=== PATIENT | female | born 1945 | race Caucasian/White ===

== ENCOUNTER → 2016-08-28 | Outpatient (CLI) | payer OTHER | LOC: BRMIMAGING 08:32 | PROVIDERS: ATTEND Physician Assistant Medical | DX: R11.2 Nausea with vomiting, unspecified (principal); R19.7 Diarrhea, unspecified | CPT/HCPCS: 76700-PO ==

== ENCOUNTER → 2017-07-31 | Outpatient (CLI) | payer OTHER | LOC: FIMAGING 15:50 | PROVIDERS: ATTEND Family Medicine | DX: M51.36 Other intervertebral disc degeneration, lumbar region (principal); M51.34 Other intervertebral disc degeneration, thoracic region; M51.35 Other intervertebral disc degeneration, thoracolumbar region; M51.37 Other intervertebral disc degeneration, lumbosacral region; M51.26 Other intervertebral disc displacement, lumbar region; M51.24 Other intervertebral disc displacement, thoracic region; M48.061 Spinal stenosis, lumbar region without neurogenic claudication; M48.07 Spinal stenosis, lumbosacral region; M41.9 Scoliosis, unspecified ==

== ENCOUNTER 2017-08-19 13:16 | Day surgery (SDC) | payer OTHER ==
[2017-08-19] MEDS ORDERED: FLUMAZENIL 0.5 MG/5 ML MDV IVP PRN (13:18)
[2017-08-19] MEDS ORDERED: NALOXONE HCL 0.4 MG/ML INJ IVP PRN (13:18)
[2017-08-19] MEDS ORDERED: MEPERIDINE 25 MG/ML SYR IVP PRN (13:18)
[2017-08-19] MEDS ORDERED: MIDAZOLAM 2 MG/2 ML VIAL IVP PRN (13:18)
[2017-08-19] MEDS ORDERED: fentaNYL 100 MCG/2 ML INJ IVP PRN (13:18)
[2017-08-19] MEDS ORDERED: fentaNYL 100 MCG/2 ML INJ ONE (13:21)
[2017-08-19] MEDS ORDERED: FLUMAZENIL 0.5 MG/5 ML MDV IVP ONE (13:21)
[2017-08-19] MEDS ORDERED: MIDAZOLAM 2 MG/2 ML VIAL ONE (13:21)
[2017-08-19] MEDS ORDERED: NALOXONE HCL 0.4 MG/ML INJ ONE (13:21)
[2017-08-19] MEDS ORDERED: NS 1,000 ML IV SCH (13:30)
[2017-08-19 13:56] VITALS: PULSE 60; RESP 12
[2017-08-19] MEDS ORDERED: TRIAMCINOLONE ACETONIDE 40 MG/ML VIAL ONE (14:00)
[2017-08-19] MEDS ORDERED: ONDANSETRON 4 MG/2 ML VIAL ONE (14:05)
--- NOTE | 2017-08-19 14:29 | PDPROPOC ---
Sedation Plan of Care Sedation Plan of Care: vital signs stable, mental status noted, patient educated of risks, benefits, alternatives, patient can tolerate sedation ASA Classification: ASA 1 Planned drugs: fentanyl, midazolam Mallampati Score: Class 1 Mallampati Reference Image: Patient passed 3-3-2 rule?: Yes
--- NOTE | 2017-08-19 14:29 | PDGENHP ---
History & Physical Chief Complaint: RECURRENT BACK PAIN History of Present Illness: PATIENT HAS HAD MULTIPLE INJECTIONS, PLUS NERVE BURNING, NOW PAIN BACK, WORSE, AT SAME PLACE. Pertinent Past, Social, Family History: NOSE, FACE LIFT, TUBAL LIGATION Relevant Physical Exam: BILATERAL LEG PAIN. Cardiorespiratory Assessment: RRR. CTA
[2017-08-19] MEDS ORDERED: ACETAMINOPHEN 325 MG TAB PO PRN (15:00)
[2017-08-19] MEDS ORDERED: ONDANSETRON 4 MG/2 ML VIAL IVP PRN (15:00)
--- NOTE | 2017-08-19 15:00 | PDRADPN ---
Radiology Procedure Note Date of Procedure: 08/19/17 Radiologist: Jing Robles Anesthesia: IV Sedation Pre-op Diagnosis: BACK PAIN Post-op Diagnosis: SAME Indication: PREVIOUS INJECTIONS HELPED Procedure: L3-4 YESSI Inf/Abcess present in the surg proc area at time of surgery?: No Complications: NONE
[2017-08-19 16:05] VITALS: BP 141/74; TEMP 97.7; O2SAT 96
== END 2017-08-19 16:05 | disposition home or self-care (01) ==
LOC: FIMAGING 13:16
PROVIDERS: ATTEND Radiology Diagnostic Radiology
PROC: 3E0S33Z Introduction of Anti-inflammatory into Epidural Space, Percutaneous Approach (ICD-10-PCS; principal; 2017-08-19 15:00)
DX: M51.36 Other intervertebral disc degeneration, lumbar region (principal)
CPT/HCPCS: J2250; J2310; J2405; J3010; J3301

== ENCOUNTER 2017-11-06 12:02 | Day surgery (SDC) | payer OTHER ==
[2017-11-06] MEDS ORDERED: fentaNYL 100 MCG/2 ML INJ IVP PRN (12:22)
[2017-11-06] MEDS ORDERED: FLUMAZENIL 0.5 MG/5 ML MDV IVP PRN (12:22)
[2017-11-06] MEDS ORDERED: NALOXONE HCL 0.4 MG/ML INJ IVP PRN (12:22)
[2017-11-06] MEDS ORDERED: MEPERIDINE 25 MG/ML SYR IVP PRN (12:22)
[2017-11-06] MEDS ORDERED: MIDAZOLAM 2 MG/2 ML VIAL IVP PRN (12:22)
[2017-11-06] MEDS ORDERED: NS 1,000 ML IV SCH (12:30)
[2017-11-06] MEDS ORDERED: ONDANSETRON 4 MG/2 ML VIAL ONE (13:20)
[2017-11-06] MEDS ORDERED: ONDANSETRON 4 MG/2 ML VIAL IVP ONE (13:30)
[2017-11-06] MEDS ORDERED: TRIAMCINOLONE ACETONIDE 200 MG/5 ML MDV IM ONE (13:47)
[2017-11-06] MEDS ORDERED: IOPAMIDOL (ISOVUE-M 300) 15 ML VIAL ONE (13:47)
--- NOTE | 2017-11-06 13:55 | PDPROPOC ---
Sedation Plan of Care Sedation Plan of Care: vital signs stable, mental status noted, patient educated of risks, benefits, alternatives, patient can tolerate sedation ASA Classification: ASA 2 Planned drugs: fentanyl, midazolam Mallampati Score: Class 1 Mallampati Reference Image: Patient passed 3-3-2 rule?: Yes
[2017-11-06] MEDS ORDERED: ONDANSETRON 4 MG/2 ML VIAL IVP PRN (14:50)
--- NOTE | 2017-11-06 14:55 | PDGENHP ---
History & Physical Chief Complaint: RECURRENT LBP History of Present Illness: H/O of multiple injections, which have helped significantly. Pertinent Past, Social, Family History: n/a Relevant Physical Exam: LBP without radiculopathy. Cardiorespiratory Assessment: rrr, cta
--- NOTE | 2017-11-06 15:20 | PDRADPN ---
Radiology Procedure Note Date of Procedure: 11/06/17 Radiologist: Jing Robles Anesthesia: IV Sedation Pre-op Diagnosis: LBP Post-op Diagnosis: SAME Indication: RECURRENT LBP Procedure: L3-4 YESSI Inf/Abcess present in the surg proc area at time of surgery?: No Complications: NONE
[2017-11-06 15:54] VITALS: BP 112/62
== END 2017-11-06 16:05 | disposition home or self-care (01) ==
LOC: FIMAGING 12:02
PROVIDERS: ATTEND Radiology Diagnostic Radiology
PROC: 3E0S33Z Introduction of Anti-inflammatory into Epidural Space, Percutaneous Approach (ICD-10-PCS; principal; 2017-11-06 15:00)
DX: M51.36 Other intervertebral disc degeneration, lumbar region (principal); M54.9 Dorsalgia, unspecified; G89.29 Other chronic pain
CPT/HCPCS: J2250; J2405; J3010; J3301; Q9967

== ENCOUNTER → 2018-06-04 | Day surgery (SDC) | payer OTHER ==
[~2018-06-04] MED LIST: FLUMAZENIL 0.5 MG/5 ML MDV IVP PRN; MIDAZOLAM 2 MG/2 ML VIAL IVP PRN; MIDAZOLAM 2 MG/2 ML VIAL ONE; NALOXONE HCL 0.4 MG/ML INJ IVP PRN; NALOXONE HCL 0.4 MG/ML INJ ONE; NS 1,000 ML IV SCH; ONDANSETRON 4 MG/2 ML VIAL IVP ONE; ONDANSETRON 4 MG/2 ML VIAL ONE; fentaNYL 100 MCG/2 ML INJ IVP PRN; fentaNYL 100 MCG/2 ML INJ ONE
--- NOTE | 2018-06-04 13:54 | PDRADPRE ---
Radiology History & Physical Indication for procedure: back pain (L3-4 YESSI) Home medications: Atenolol 25 mg PO DAILY 08/15/17 [Last Taken 08/19/17] Calcium 500 mg PO DAILY 08/15/17 [Last Taken 06/03/18] Fosamax 70 MG (*) 1 tab PO AD 08/15/17 [Last Taken 06/02/18] Ibuprofen 600 mg PO PRN PRN 08/15/17 [Last Taken 06/03/18] Klor-Con 20 meq (*) 1 tab PO BID 08/15/17 [Last Taken 06/03/18] Multivitamin (*) 1 tab PO DAILY 08/15/17 [Last Taken 06/03/18] Prilosec 20 mg PO DAILY 08/15/17 [Last Taken 06/04/18] Restoril 30 mg PO DAILY 08/15/17 [Last Taken 06/03/18] Vitamin D3 1 cap PO DAILY 08/15/17 [Last Taken 06/03/18] Atenolol-Chlorthalidone 50-25 1 tab PO DAILY 10/29/17 [Last Taken 06/04/18] Atorvastatin Calcium [Lipitor 10 mg (*)] 1 tab PO DAILY 10/29/17 [Last Taken ] Losartan Potassium [Cozaar 25 mg (*)] 25 mg PO DAILY 10/29/17 [Last Taken ] Allergies/Adverse Reactions: codeine Allergy (Mild, Verified 06/04/18 12:37) Mental status: A&Ox3 Heart exam: regular rate and rhythm Lungs exam: clear to auscultation Mallampati Score: Class 2
--- NOTE | 2018-06-04 14:47 | PDPROPOC ---
Sedation Plan of Care Sedation Plan of Care: vital signs stable, mental status noted, patient educated of risks, benefits, alternatives, patient can tolerate sedation ASA Classification: ASA 2 Planned drugs: fentanyl, midazolam Mallampati Score: Class 2 Mallampati Reference Image: Patient passed 3-3-2 rule?: Yes
--- NOTE | 2018-06-04 14:48 | PDRADPN ---
Radiology Procedure Note Date of Procedure: 06/04/18 Radiologist: Vijay Domínguez Anesthesia: IV Sedation Pre-op Diagnosis: LBP/radiculopathy Post-op Diagnosis: same Indication: LBP Procedure: YESSI Finding(s): L3/4 YESSI Inf/Abcess present in the surg proc area at time of surgery?: No
[2018-06-04 15:28] VITALS: BP 112/67
== END | disposition home or self-care (01) ==
LOC: FIMAGING 11:51
PROVIDERS: ATTEND Family Medicine
PROC: 3E0R3BZ Introduction of Anesthetic Agent into Spinal Canal, Percutaneous Approach (ICD-10-PCS; principal; 2018-06-04 14:17)
PROC: 3E0R33Z Introduction of Anti-inflammatory into Spinal Canal, Percutaneous Approach (ICD-10-PCS; principal; 2018-06-04 14:17)
DX: M51.36 Other intervertebral disc degeneration, lumbar region (principal)
CPT/HCPCS: J2250; J2310; J2405; J3010

== ENCOUNTER → 2018-09-29 | Outpatient (CLI) | payer OTHER | LOC: BRMIMAGING 12:33 | PROVIDERS: ATTEND Family Medicine | DX: R22.1 Localized swelling, mass and lump, neck (principal) ==

== ENCOUNTER 2018-11-13 11:46 | Day surgery (SDC) | payer OTHER ==
[2018-11-13] MEDS ORDERED: FLUMAZENIL 0.5 MG/5 ML MDV IVP PRN (12:04)
[2018-11-13] MEDS ORDERED: MIDAZOLAM 2 MG/2 ML VIAL IVP PRN (12:04)
[2018-11-13] MEDS ORDERED: fentaNYL 100 MCG/2 ML INJ IVP PRN (12:04)
[2018-11-13] MEDS ORDERED: NALOXONE HCL 0.4 MG/ML INJ IVP PRN (12:04)
[2018-11-13] MEDS ORDERED: NS 1,000 ML IV SCH (12:15)
[2018-11-13] MEDS ORDERED: FLUMAZENIL 0.5 MG/5 ML MDV IVP ONE (13:20)
[2018-11-13] MEDS ORDERED: ONDANSETRON 4 MG/2 ML VIAL ONE (13:20)
[2018-11-13] MEDS ORDERED: MIDAZOLAM 2 MG/2 ML VIAL ONE ×2 (13:20→13:21)
[2018-11-13] MEDS ORDERED: NALOXONE HCL 0.4 MG/ML INJ ONE (13:21)
[2018-11-13] MEDS ORDERED: fentaNYL 100 MCG/2 ML INJ ONE ×2 (13:21→13:49)
[2018-11-13] MEDS ORDERED: ONDANSETRON 4 MG/2 ML VIAL IVP ONE (13:30)
[2018-11-13] MEDS ORDERED: LIDOCAINE 1% 5 ML SDV ONE (14:11)
[2018-11-13] MEDS ORDERED: IOPAMIDOL (ISOVUE-M 300) 15 ML VIAL ONE (14:11)
[2018-11-13] MEDS ORDERED: TRIAMCINOLONE ACETONIDE 200 MG/5 ML MDV IM ONE (14:11)
--- NOTE | 2018-11-13 14:24 | PDGENHP ---
History & Physical Chief Complaint: RECURRENT BACK PAIN History of Present Illness: PATIENT HAS REPEAT BACK INJECTIONS EVERY 4-5 MONTHS FOR SEVERE BILATERAL BACK PAIN. SAME DISTRIBUTION. Pertinent Past, Social, Family History: HTN. NAUSEA WITH PROCEDURES Relevant Physical Exam: PAIN IN SAME PLACE. NO RADICULOPATHY Cardiorespiratory Assessment: RRR, CTA
--- NOTE | 2018-11-13 14:46 | PDRADPN ---
Radiology Procedure Note Date of Procedure: 11/13/18 Radiologist: Jing Robles Anesthesia: IV Sedation Pre-op Diagnosis: RECURRENT BACK PAIN Post-op Diagnosis: SAME Indication: SEVERE BACK PAIN Procedure: L3-4 YESSI. Inf/Abcess present in the surg proc area at time of surgery?: No
[2018-11-13] MEDS ORDERED: ACETAMINOPHEN 325 MG TAB PO PRN (14:52)
[2018-11-13] MEDS ORDERED: ONDANSETRON 4 MG/2 ML VIAL IVP PRN (14:52)
[2018-11-13 15:55] VITALS: BP 121/90
== END 2018-11-13 16:05 | disposition home or self-care (01) ==
LOC: FIMAGING 11:46
PROVIDERS: ATTEND Family Medicine
PROC: 3E0S33Z Introduction of Anti-inflammatory into Epidural Space, Percutaneous Approach (ICD-10-PCS; principal; 2018-11-13 14:56)
PROC: 3E0S3BZ Introduction of Anesthetic Agent into Epidural Space, Percutaneous Approach (ICD-10-PCS; principal; 2018-11-13 14:56)
DX: M51.36 Other intervertebral disc degeneration, lumbar region (principal); M54.5 Low back pain
CPT/HCPCS: J2250; J2310; J2405; J3010; J3301; Q9967